=== PATIENT | male | born 1995 | race Caucasian/White ===

== ENCOUNTER 2018-09-18 15:16 | Emergency (ER) | payer OTHER ==
[~2018-09-18] VITALS: Ht 172.7 cm; Wt 120.2 kg
[2018-09-18 16:14] LABS: BASOPHILS % 0.3 % (0.0-1.0); EOSINOPHILS # (AUTO) 0.3 (0.0-0.4); EOSINOPHILS % 2.6 % (0.0-6.0); HEMATOCRIT 44.7 % (38.2-49.6); HEMOGLOBIN 14.9 g/dL (14.0-18.0); LYMPHOCYTES # (AUTO) 3.1 (1.0-3.2); LYMPHOCYTES % 30.6 % (18.0-39.1); MEAN CORPUSCULAR HEMOGLOBIN 29.2 pg (28-32); MEAN CORPUSCULAR HGB CONC 33.3 g/dL (31-35); MEAN CORPUSCULAR VOLUME 87.6 fL (81-99); MONOCYTES # (AUTO) 1.1 (0.2-0.8); MONOCYTES % 10.8 % (4.4-11.3); NEUTROPHILS # (AUTO) 5.5 (2.1-6.9); NEUTROPHILS % 55.4 % (38.7-80.0); PLATELET COUNT 269 x10e3/uL (140-360); RED CELL DISTRIBUTION WIDTH 11.9 % (11.7-14.4)
[2018-09-18 16:32] LABS: ANION GAP 11.6 mmol/L (8-16); BLOOD UREA NITROGEN 8 mg/dL (7-26); BUN/CREATININE RATIO 9 (6-25); CALCIUM 9.9 mg/dL (8.4-10.2); CARBON DIOXIDE 28 mmol/L (22-29); CHLORIDE 98 mmol/L (98-107); EST GLOMERULAR FILTRATION RATE > 60 ML/MIN (60-); GLUCOSE 97 mg/dL (74-118); POTASSIUM 3.6 mmol/L (3.5-5.1); SODIUM 134 mmol/L (136-145)
--- NOTE | 2018-09-18 17:45 | Diagnostic Imaging Report ---
CT MAX FAC/PARANASAL W HISTORY: Right facial swelling, right jaw pain COMPARISON: None. TECHNIQUE: Axial CT images were obtained through the face with intravenous, iodine based contrast. Coronal and sagittal reconstructions obtained from the axial data. One or more of the following dose reduction techniques were used: Automated exposure control, adjustment of the mA and/or kV according to patient size, and/or utilization of iterative reconstruction technique. Motion artifacts obscure some details. 100 mL of Isovue 320 were administered. DISCUSSION: Periapical lucency at the right mandibular first and second molars is associated with focal dehiscence/erosion of the buccal cortex (of the right mandibular alveolar process). Associated 1.8 cm peripherally enhancing, hypodense collection along the adjacent lower right buccal space is concerning for abscess. There is associated prominent subcutaneous fat stranding along the lower right face and buccal space. Additional mild periapical lucency is seen at the right maxillary central incisor, right maxillary first molar, and left mandibular second molar. Underlying scattered dental caries and hardware are present. The adenoid, palatine, and lingual tonsils are prominent. Otherwise, the visualized upper aerodigestive tract is unremarkable. Mildly prominent bilateral submandibular and upper jugular chain lymph nodes may be reactive. The partially visualized thyroid gland is unremarkable. The submandibular and parotid glands are unremarkable. The major cervical vessels are unremarkable. The char conveyor tender cellar, parapharyngeal, posterior cervical, and perivertebral spaces are otherwise grossly unremarkable. The visualized intracranial compartment and orbits are grossly unremarkable. There is nonspecific mild mucosal thickening in the bilateral maxillary sinuses. A small amount of fluid layers in the left maxillary sinus; correlate for acute sinusitis. There are mild degenerative changes in the spine. IMPRESSION: 1. Findings concerning for periapical abscess (approximately 1.8 cm) along the lower right buccal space, adjacent to the right mandibular first and second molars. Underlying periapical lucency at the right mandibular first and second molars is associated with focal dehiscence/erosion of the buccal cortex. 2. Mild bilateral upper cervical lymphadenopathy may be reactive. 3. Prominent adenoids, palatine, and lingual tonsils. 4. Mild bilateral maxillary sinus mucosal thickening. Small amount of fluid layers in the left maxillary sinus; correlate for acute sinusitis. Signed by: Dr. Basil Strickland M.D. on 09/18/2018 5:41 PM
[2018-09-18] MEDS ORDERED: CLINDAMYCIN HC300 MG PO (18:03)
[2018-09-18] MEDS ORDERED: TYLENOL WITH C1 EACH PO (18:03)
[2018-09-18] MEDS ORDERED: SODIUM CHLORIDE 0.9% 50ML 50 ML ONE (19:58)
[2018-09-18] MEDS ORDERED: IOPAMIDOL 370 MG/ML 200 ML INFUS..BTL INJ ONE (19:58)
== END 2018-09-18 18:21 | disposition home or self-care (01) ==
LOC: ER 15:16
DX: K08.89 Other specified disorders of teeth and supporting structures (principal); K04.7 Periapical abscess without sinus; J01.00 Acute maxillary sinusitis, unspecified
CPT/HCPCS: 36415; 70487; 80048; 85025; 99283; Q9967